=== PATIENT | male | born 1950 | race Caucasian/White ===

== ENCOUNTER 2021-03-08 06:16 | Inpatient (IN) ==
[2021-03-08] MEDS ORDERED: SODIUM CHLORIDE 0.9% 1,000 ML IV STA (06:50)
[2021-03-08 07:01] LABS: Basophils # 0.1 10*3/uL (0.0-0.2); Basophils % 0.8 % (0.0-0.8); Eosinophils # 0.1 10*3/uL (0.0-0.87); Eosinophils % 1.9 % (0.00-10.9); Hemoglobin 16.3 GM/DL (14.0-18.0); Immature Granulocytes % 0.2 %; Immature Granulocytes Absolute 0.01 #; Lymphocytes # 2.6 10*3/uL (1.4-4.0); Lymphocytes % 41.5 % (21.2-54.2); Mean Corpuscular HGB Conc 34.7 GM/DL (32-36); Mean Corpuscular Volume 90.6 FL (87-102); Mean Platelet Volume 9.8 FL (9.6-12.0); Monocytes % 8.7 % (1.7-12.7); Neutrophils % 46.9 % (38.7-73.9); Platelet Count 182 T/CUMM (130-400); Red Blood Count 5.19 MC/CUMM (3.8-5.5); Red Cell Distribution Width 12.7 % (9.3-17.3); White Blood Count 6.3 T/CUMM (4-12)
[2021-03-08 07:02] LABS: PT Patient Result 11.3 SECS (9.8-11.9); Partial Thromboplastin Time 23.1 SECS (23.9-33.8)
[2021-03-08 07:13] LABS: Alanine Aminotransferase 67 U/L (16-61); Albumin 3.7 G/DL (3.4-5.0); Alkaline Phosphatase 97 U/L (45-117); Aspartate Amino Transferase 41 U/L (0-37); Blood Urea Nitrogen 13 MG/DL (7-18); Carbon Dioxide 28 MMOL/L (21-32); Estimated Glom Filtration Rate 100 ML/MIN; Glucose 150 MG/DL (74-106); Osmolality,Calculated 281.4 MOS/KG (273-304); Sodium 140 MMOL/L (136-145); Total Protein 7.1 G/DL (6.4-8.2)
[2021-03-08 07:45] LABS: Risk Ratio 6.87; VLDL CHOLESTEROL 28.6 MG/DL
[2021-03-08] MEDS: metFORMIN 500 MG TABLET PO SCH (08:55)
[2021-03-08] MEDS: LISINOPRIL/HCTZ 10-12.5 MG TABLET PO SCH (08:55)
[2021-03-08] MEDS: ASPIRIN EC 81 MG TABLET PO SCH (08:55)
[2021-03-08] MEDS ORDERED: GLUCAGON 1 MG VIAL IM PRN (09:31)
[2021-03-08] MEDS ORDERED: ACETAMINOPHEN 325 MG TABLET PO PRN (09:31)
[2021-03-08] MEDS ORDERED: DEXTROSE 50% 25 GM/50 ML VIAL IV PRN (09:31)
[2021-03-08] MEDS ORDERED: ONDANSETRON 4 MG/2 ML VIAL IV PRN (09:31)
[2021-03-08] MEDS: PANTOPRAZOLE 40 MG TABLET PO SCH (12:00)
[2021-03-08] MEDS: ROSUVASTATIN 20 MG TABLET PO SCH (12:00)
[2021-03-08] MEDS: SODIUM CHLORIDE 0.9% 1,000 ML IV SCH ×2 (12:00→20:37)
[2021-03-08] MEDS: DOCUSATE SODIUM 100 MG CAPSULE PO SCH ×3 (12:00→20:45)
[2021-03-08] MEDS ORDERED: HEPARIN DRIP 25,000 UNITS/500 ML PREMIX IV SCH (13:00)
[2021-03-08] MEDS: INSULIN LISPRO 100 UNIT/ML SUBCUT SCH ×2 (19:00→20:45)
[2021-03-09] MEDS: SODIUM CHLORIDE 0.9% 1,000 ML IV SCH ×2 (03:25→13:50)
[2021-03-09 07:22] LABS: Risk Ratio 5.91; VLDL CHOLESTEROL 32.6 MG/DL
[2021-03-09 10:04] LABS: Bilirubin,Urine Negative (Negative); Blood, Urine Negative (Negative); Glucose,Urine (UA) Negative (Negative); Ketones,Urine Negative (Negative); Mucus,Urine Occasional /LPF (Occasional); Nitrite,Urine Negative (Negative); Protein,Urine Negative; RBC,Urine 1 /HPF (0-4); Urine Appearance CLEAR (Clear); Urine Color Yellow (Yellow); Urine Specific Gravity 1.011 (1.001-1.035); Urine Urobilinogen < 2.0 EU/DL (0.2-1.0); WBC,Urine <1 /HPF (0-6)
[2021-03-09 10:13] LABS: Barbiturates Screen,Urine Negative (Negative); Benzodiazepines Screen,Urine Negative (Negative); Cannabinoid Screen,Urine Negative (Negative); Opiate Screen,Urine Negative (Negative); Phencyclidine Screen,Urine Negative (Negative)
[2021-03-09 10:41] LABS: Protein C Activity Plasma 85 % (70 - 150)
[2021-03-09] MEDS ORDERED: SODIUM CHLORIDE 0.9% 1,000 ML IV SCH (12:00)
[2021-03-09] MEDS ORDERED: propofoL 200 MG/20 ML VIAL IV ONE (13:41)
[2021-03-09] MEDS ORDERED: LIDOCAINE 2% 5 ML VIAL ONE (13:41)
[2021-03-09] MEDS: INSULIN LISPRO 100 UNIT/ML SUBCUT SCH (13:48)
[2021-03-09] MEDS: ROSUVASTATIN 20 MG TABLET PO SCH (13:48)
[2021-03-09] MEDS: DOCUSATE SODIUM 100 MG CAPSULE PO SCH (13:48)
[2021-03-09] MEDS: ASPIRIN EC 81 MG TABLET PO SCH (13:48)
[2021-03-09] MEDS: LISINOPRIL/HCTZ 10-12.5 MG TABLET PO SCH (13:49)
[2021-03-09] MEDS: PANTOPRAZOLE 40 MG TABLET PO SCH (13:49)
[2021-03-09] MEDS: metFORMIN 500 MG TABLET PO SCH (13:49)
[2021-03-09 13:54] VITALS: BP 137/60
[2021-03-10] MEDS ORDERED: RIVAROXABAN 20 MG TABLET PO SCH (08:00)
[2021-03-12 13:01] LABS: Protein S Activity Plasma 132 % (65 - 160)
[2021-03-14 16:56] LABS: FACV Specimen Whole Blood
== END 2021-03-09 14:20 | DRG 65 ==
LOC: N.ED 06:16 → N.EDINP 07:46 → N.4E 11:52
PROVIDERS: ADMIT Family Medicine; ATTEND Family Medicine